=== PATIENT | female | born 1950 | race Caucasian/White ===

== ENCOUNTER → 2016-10-02 | Outpatient (CLI) | payer BC ==
[~2016-10-02] MED LIST: ALBU17AE3; CLR500T; FRSM20T; HYDR-3729 PO; OMEP20CA12; QNPR10T; [UNRECOGNIZED DRUG - CODE]
[2016-10-02 15:19] LABS: ALBUMIN 4.3 G/DL (3.2-4.5); BILIRUBIN,TOTAL 0.7 MG/DL (0.1-1.0); CALCIUM 9.9 MG/DL (8.5-10.1); CREATININE SERUM 1.09 MG/DL (0.60-1.30); POTASSIUM 3.9 MMOL/L (3.6-5.0); TOTAL PROTEIN 7.5 G/DL (6.4-8.2)
== END ==
LOC: LAB 14:05
PROVIDERS: ATTEND Family Medicine
DX: I10 Essential (primary) hypertension (principal)
CPT/HCPCS: 36415; 80053

== ENCOUNTER → 2016-10-08 | Outpatient (CLI) | payer BC ==
[~2016-10-08] MED LIST changes: +CATHETER FLUSH 10 ML SYR IV PRN; +IOHEXOL 350 MG/ML 100 ML (OMNIPAQUE 350) VIAL IV ONE; +NS 100 ML (IVPB) BAG IV ONE
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
--- NOTE | 2016-10-08 17:35 | Diagnostic Imaging Report ---
PROCEDURE: US Carotid Duplex Bilateral. TECHNIQUE: Multiple real-time grayscale images were obtained over the carotid arteries in various projections bilaterally. Additional duplex Doppler and color Doppler images were also obtained. INDICATION: Memory loss. FINDINGS: Grayscale images demonstrate mild atherosclerotic plaque. Color Doppler demonstrates patency of the common, internal and external carotid arteries bilaterally. The vertebral arteries demonstrate antegrade flow on both sides. Peak systolic velocities in the right ICA are 66, 80 and 127 cm/s from proximal to distal. The left ICA velocities are 45, 95, and 96 cm/s from proximal to distal. ICA/CCA ratio is up to 1.4 on the right side and up to 1.1 on the left compatible with underlying stenosis within range of 0-40% bilaterally. IMPRESSION: No evidence of significant stenosis. Dictated by: Dictated on workstation # [id number]
== END ==
LOC: RAD 08:14
PROVIDERS: ATTEND Family Medicine
DX: R41.3 Other amnesia (principal)
CPT/HCPCS: 70470; 93880

== ENCOUNTER → 2017-04-15 | Outpatient (CLI) | payer BC ==
[~2017-04-15] MED LIST changes: -CATHETER FLUSH 10 ML SYR IV PRN; -IOHEXOL 350 MG/ML 100 ML (OMNIPAQUE 350) VIAL IV ONE; -NS 100 ML (IVPB) BAG IV ONE
--- NOTE | 2017-04-15 14:31 | Diagnostic Imaging Report ---
INDICATION: Injury. Pain. COMPARISON: None. FINDINGS: 3 views of the right foot demonstrate no acute fracture or dislocation. There are no focal osseous lesions. There is no soft tissue swelling. Joint spaces are well maintained. No radiopaque foreign bodies are seen. IMPRESSION: No acute fractures or dislocations of the right foot. Dictated by: Dictated on workstation # [id number]
== END ==
LOC: RAD 13:53
PROVIDERS: ATTEND Family Medicine
DX: S90.31XA Contusion of right foot, initial encounter (principal); X58.XXXA Exposure to other specified factors, initial encounter; Y99.8 Other external cause status
CPT/HCPCS: 73630

== ENCOUNTER → 2017-10-19 | Outpatient (CLI) | payer MEDICARE ==
[2017-10-19 13:19] LABS: ALBUMIN 4.2 GM/DL (3.2-4.5); BILIRUBIN,TOTAL 0.9 MG/DL (0.1-1.0); CALCIUM 9.6 MG/DL (8.5-10.1); CREATININE SERUM 1.05 MG/DL (0.60-1.30); POTASSIUM 3.9 MMOL/L (3.6-5.0); TOTAL PROTEIN 7.8 GM/DL (6.4-8.2)
== END ==
LOC: LAB 12:39
PROVIDERS: ATTEND Family Medicine
DX: R60.9 Edema, unspecified (principal)
CPT/HCPCS: 36415; 80053

== ENCOUNTER 2018-09-23 22:08 | Emergency (ER) | payer MEDICARE ==
[~2018-09-23] VITALS: Ht 170.2 cm; Wt 117.9 kg
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
--- OUTSIDE RECORDS SUMMARY | 2018-09-23 22:15 | XMS REPORT | Clinical Summary ---
Author Author [facility] Organization [facility] Address Unknown Phone Unavailable Care Team Providers Care Certified Health Education Specialist Name Role Phone Sergio Pike MD PCP Beverly Sanchez MD Unavailable Source Comments Some departments are not documenting in the electronic medical record. If you do not see the information that you expected, contact Release of Information in the Health Information Management department at [phone] for further assistance in locating additional records.[facility] Allergies No Known Allergies Medications End Date Status Medication Sig Dispensed Refills Start Date Active amitriptyline (ELAVIL) 50 Take 50 mg by 0 mg PO tabletIndications: mouth at HTN (hypertension) bedtime daily. Active furosemide (LASIX) 20 mg Take 20 mg by 0 PO tabletIndications: HTN mouth daily. (hypertension) Active metformin (GLUCOPHAGE) Take 500 mg 0 500 mg PO by mouth tabletIndications: HTN twice daily (hypertension) with meals. Active quinapril(+) (ACCUPRIL) Take 10 mg by 0 10 mg PO mouth daily. tabletIndications: HTN (hypertension) Active lansoprazole DR Take 30 mg by 0 (PREVACID) 30 mg PO mouth daily. capsuleIndications: HTN (hypertension) Active DOCOSAHEXANOIC ACID/EPA Take by 0 (FISH OIL PO)Indications: mouth. HTN (hypertension) Active pravastatin (PRAVACHOL) Take 1 Tab by 30 Cap 3 20 mg PO mouth daily. 1 tabletIndications: HTN (hypertension) Active Phentermine 37.5 mg cap Take by 0 mouth. Active liraglutide(+) (VICTOZA Inject 0.6 mg 0 2-ANSELMO) 0.6 mg/0.1 mL (18 into area(s) mg/3 mL) PnIj as directed daily. Active Problems Problem Noted Date HTN (hypertension) 09/23/2010 Last Assessment & Plan: Blood pressure is stable on current medical management. No change in medications recommended at this time. Hyperlipidemia LDL goal < 70 09/23/2010 Overview: Statin initiated 08/2010 L ast Assessment & Plan: Given Mrs. Montez's diabetes and LDL at 120, I initiated a low dose statin today to try and get her to her goal of <70 mg/dl. I talked to her about myalgias on statins. I told her to call my office if she starts having myalgias and we will stop the drug. I gave her a lipid and LFT requisition for 3 months from now. Obesity 09/23/2010 Last Assessment & Plan: I strongly encouraged Mrs. Montez to start walking for 30-60 minutes 3-5 times a week. I told her that if she could lose 10-15 pounds she could likely get off of a number of her medications. She agreed to try. Diabetes mellitus type 2, noninsulin dependent Ovarian cyst Migraines Murmur Last Assessment & Plan: Physical examination is consistent with mild tricuspid regurgitation. I told her that we don't need to do any further evaluation unless she starts having symptoms to suggest right heart failure. Family History Medical History Relation Name Comments Cancer Brother Diabetes Brother Hypertension Brother Diabetes Maternal Aunt Heart Attack Mother Bleeding Disorders Neg Hx Cancer-Breast Neg Hx Cancer-Colon Neg Hx Cancer-Ovarian Neg Hx Heart Disease Neg Hx VTE Neg Hx Relation Name Status Comments Brother Alive Brother Alive Father Maternal Aunt Mother Sister Alive Sister Alive Social History Date Tobacco Use Types Packs/Day Years Used Quit: 09/24/1995 Former Smoker Alcohol Use Drinks/Week oz/Week Comments No Sex Assigned at Date Recorded Not on file Industry Job Start Date Occupation Not on file Not on file Not on file Travel End Travel History Travel Start No recent travel history available. Last Filed Vital Signs Time Taken Vital Sign Reading 09/01/2012 9:19 AM CDT Blood Pressure 128/78 09/23/2010 9:31 AM CDT Pulse 82 - Temperature - - Respiratory Rate - - Oxygen Saturation - - Inhaled Oxygen - Concentration 09/01/2012 9:19 AM CDT Weight 99.3 kg (219 lb) 09/01/2012 9:19 AM CDT Height 172.7 cm (5' 8") 09/01/2012 9:19 AM CDT Body Mass Index 33.3 Plan of Treatment Health Maintenance Due Date Last Done Comments HEPATITIS C SCREENING 1952 PHYSICAL (COMPREHENSIVE) 1959 EXAM DILATED EYE EXAM 1970 DTAP/TDAP VACCINES (1 - 1970 Tdap) FOOT EXAM 1970 HBA1C 1970 MICROALBUMIN 1970 COLORECTAL CANCER 2002 SCREENING SHINGLES RECOMBINANT 2002 VACCINE (1 of 2) BREAST CANCER SCREENING 11/21/2015 11/20/2014, 07/01/2012, 07/20/2009, Additional history exists OSTEOPOROSIS 2017 SCREENING/MONITORING PNEUMONIA (PCV13/PPSV23) 2017 VACCINES (1 of 2 - PCV13) INFLUENZA VACCINE 12/30/2018 Results Not on filefrom Last 3 Months Insurance Type Payer Benefit Subscriber ID Effective Phone Address Plan / Dates Group PPO BCBS [facility] xxxxxxxxxxxx [id number] [facility] resent BLUE Advance Directives Patient has advance care planning documents on file. For more information, please contact: [facility] [address] [facility] [place] [address]
[2018-09-23] MEDS ORDERED: SULF1TAB35 PO (23:44)
[2018-09-23] MEDS ORDERED: MELO15TA14 PO (23:44)
[2018-09-23] MEDS ORDERED: RX-NAPROXEN (NAPROSYN) 250 MG TAB PPK#4 PO ONE (23:45)
--- NOTE | 2018-09-23 23:45 | ED Upper Extremity ---
General Chief Complaint: Upper Extremity Stated Complaint: MIDDLE FINGER PAIN AND SWELLING IN R HAND Nursing Triage Note: Pt reports getting R ring finger stuck betwee two baskets last week and now c/o pain in the middle finger. Joint is red and swollen . Pt c/o pain with movement. Area is warm to the touch. Nursing Sepsis Screen: No Definite Risk Source: patient History of Present Illness Date Seen by Provider: Sep 23, 2018 Time Seen by Provider: 23:25 Initial Comments PT ARRIVES VIA POV FROM HOME STATES 2 WEEKS AGO, SHE GOT HER RIGHT 4TH FINGER STUCK BETWEEN 2 BASKETS HAS HAD PAIN AND SWELLING TO DIP JOINT AREA SINCE THEN, BUT IS GETTING BETTER AND DOES NOT HURT MUCH AT ALL DID NOT SEEK CARE FOR THAT ISSUE STATES NOW SHE IS HAVING PAIN, REDNESS AND SWELLING TO 3RD MCP JOINT OF RIGHT HAND --IS NOT SURE WHEN THAT STARTED, BUT THINKS YESTERDAY OR TODAY NO NEW INJURY STATES HER DAUGHTER NOTICED IT AND MADE HER COME HERE TONIGHT, BECAUSE THEY ARE LEAVING FOR [place] IN THE MORNING AND "WANTED IT CHECKED SO THEY DIDN'T HAVE TO GO TO AN ER IN [place]" PT DOES NOT RECALL INJURING THAT AREA PT STATES PAIN EXTENDS TO PROXIMAL 3RD FINGER, AND HAS PAIN WITH MOVEMENT OF 3RD FINGER NO PARESTHESIAS OR MOTOR DEFICITS NO HISTORY OF PRIOR PROBLEMS WITH THIS HAND NO OTHER JOINTS PAINFUL OR SWOLLEN NO FEVER HAS NOT TAKEN ANYTHING FOR PAIN AT ANY TIME PT STATES SHE SAW DR. QUARLES ON THURSDAY FOR A COLD AND WAS GIVEN RX FOR Z-PACK WENT BACK TO CLINIC ON THURSDAY AND SAW STITCHER HAND BECAUSE Z-PACK WAS CAUSING HER TO HAVE DIARRHEA. WAS GIVEN RX FOR CEFDINIR AND CODEINE COUGH SYRUP THOSE SYMPTOMS ARE GETTING BETTER HAS NOT SOUGHT CARE AT ANY TIME FOR HAND COMPLAINTS--DID NOT MENTION THEM AT VISITS AT HER DR'S OFFICE THIS WEEK PT IS DIABETIC PCP: DR. QUARLES Allergies and Home Medications Allergies Coded Allergies: YENIFERANo Known Allergies (Verified Allergy, Unknown, 10/15/06) Home Medications Hydrocodone/Acetaminophen 1 Each Tablet, 1-2 EACH PO Q4H PRN for PAIN Prescribed by: NATY ROLDAN on 03/23/16 1301 Meloxicam 15 Mg Tablet, 15 MG PO DAILY Prescribed by: KEVYN QUINTANILLA on 09/23/18 2344 Sulfamethoxazole/Trimethoprim 1 Each Tablet, 1 EACH PO BID Prescribed by: KEVYN QUINTANILLA on 09/23/18 2344 Patient Home Medication List Home Medication List Reviewed: Yes Review of Systems Constitutional: see HPI EENTM: see HPI Respiratory: see HPI Musculoskeletal: see HPI Skin: see HPI Psychiatric/Neurological: No Symptoms Reported Past Oaafbqa-Tlhroz-Imfiey Hx Patient Social History Alcohol Use: Denies Use Recreational Drug Use: No Smoking Status: Former Smoker Type Used: Cigarettes 2nd Hand Smoke Exposure: No (quit in 2006) Recent Foreign Travel: No Contact w/Someone Who Travel: No Recent Infectious Disease Expo: No Recent Hopitalizations: No Physical Abuse: No Sexual Abuse: No Mistreated: No Seasonal Allergies Seasonal Allergies: Yes Past Medical History Surgeries: Yes Appendectomy, Gallbladder, Oophorectomy, Tubal Ligation Respiratory: Yes Asthma Cardiac: Yes Hypertension Neurological: Yes Headaches /Migraines Reproductive Disorders: Yes Female 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 oz. 117.102137mg; BMI Method:Stated General Appearance: WD/WN, no apparent distress Shoulder: normal inspection, non-tender, no evidence of injury, normal ROM Elbow/Forearm: normal inspection, non-tender, no evidence of injury, normal ROM Wrist: Yes normal inspection, Yes non-tender, Yes no evidence of injury, Yes normal ROM Hand: Right (MILD TENDERNESS, SWELLING AND ERYTHEMA TO RIGHT DIP JOINT AREA. MOTOR/SENSORY/VASCULAR INTACT. MODERATE TENDERNESS, SWELLING, ERYTHEMA AND WARMTH TO RIGHT 3RD MCP JOINT, WITH MILDER TENDERNESS, SWELLING AND ERYTHEMA TO PROXIMAL 3RD FINGER. MOTOR/SENSORY/VASCULAR INTACT), bone tenderness, limited ROM, soft tissue tenderness, swelling Neurologic/Psychiatric: cannoneer II-XII nml as tested, no motor/sensory deficits, alert, normal mood/affect, oriented x 3 Skin: normal color, warm/dry, other ( ABOVE. NO OPEN WOUNDS) Progress/Results/Core Measures Results/Orders My Orders Orders - KEVYN QUINTANILLA DO Hand, Right, 3 Views (09/23/18 ) Rx-Naproxen (Rx-Naprosyn) (09/23/18 23:45) Rx-Naproxen (Rx-Naprosyn) (09/23/18 23:45) Vital Signs/I&O Blood Pressure Mean: 92 Diagnostic Imaging Comments XRAYS RIGHT HAND--SMALL AVULSION TO DIP JOINT AREA OF 4TH FINGER, NO OTHER ACUTE PROCESS, PENDING RADIOLOGIST REVIEW Reviewed: Reviewed by Me Departure Impression Primary Impression: AVULSION FRACTURE RIGHT 4TH DIP JOINT Additional Impression: CELLULITIS RIGHT HAND AT MCP JOINT AREA Disposition: 01 HOME, SELF-CARE Condition: Stable Departure-Patient Inst. Referrals: ADILENE QUARLES MD (PCP/Family) Primary Care Physician Patient Instructions: Cellulitis (Skin Infection), Adult (DC), Finger Fracture (DC) Add. Discharge Instructions: ICE TO SORE AREAS AT 20 MINUTE INTERVALS ELEVATE HAND MUCH POSSIBLE CONTINUE CEFDINIR PRESCRIBED FOLLOW UP WITH DR IN 2-3 DAYS IF NO BETTER RETURN TO ER IF WORSE All discharge instructions reviewed with patient and/or family. Voiced understanding. Scripts Meloxicam (Mobic) 15 Mg Tablet 15 MG PO DAILY, #10 TAB Prov: KEVYN QUINTANILLA DO 09/23/18 Sulfamethoxazole/Trimethoprim (Bactrim Ds Tablet) 1 Each Tablet 1 EACH PO BID, #20 TAB Prov: KEVYN QUINTANILLA DO 09/23/18 KEVYN QUINTANILLA DO Sep 23, 2018 23:45
[2018-09-23] MEDS: RX-NAPROXEN (NAPROSYN) 250 MG TAB PPK#4 PO STA (23:49)
[2018-09-23 23:53] VITALS: BP 139/64
--- NOTE | 2018-09-24 07:27 | Diagnostic Imaging Report ---
Clinical indication: Caught hand between 2 baskets last week. Patient still complains of pain and soreness in third and fourth digits. Exam: X-ray of the right hand, 3 views. Comparison: None. Findings: There is a dorsally displaced intra-articular fracture of the dorsal base of the fourth distal phalanx. There is adjacent soft tissue swelling. There appears be chronic calcifications and degenerative spurring involving the second DIP joint. There is no other fracture or dislocation seen on this exam. There are small spurs scattered throughout the PIP and IP joints of the left hand. There is mild spurring of the first MCP joint and third MCP joint region. There is mild spurring of the first CMC joint. Impression: 1: There is a dorsally displaced intra-articular fracture of the dorsal base of the fourth distal phalanx. 2: There is no other definite fracture or dislocation seen. 3: Degenerative disease of the right hand. Dictated by: Dictated on workstation # [id number]
== END 2018-09-23 23:51 | disposition home or self-care (01) ==
LOC: EDUNIT# 22:08 → ER 22:09
DX: S62.634A Displaced fracture of distal phalanx of right ring finger, initial encounter for closed fracture (principal); L03.011 Cellulitis of right finger; J45.909 Unspecified asthma, uncomplicated; I10 Essential (primary) hypertension; G43.909 Migraine, unspecified, not intractable, without status migrainosus; E11.9 Type 2 diabetes mellitus without complications; Z87.448 Personal history of other diseases of urinary system; Z87.891 Personal history of nicotine dependence; Z90.49 Acquired absence of other specified parts of digestive tract; Z98.890 Other specified postprocedural states; Z98.51 Tubal ligation status; W23.1XXA Caught, crushed, jammed, or pinched between stationary objects, initial encounter
CPT/HCPCS: 73130

== ENCOUNTER → 2019-02-01 | Outpatient (CLI) | payer MEDICARE ==
[~2019-02-01] MED LIST changes: +MELO15TA14 PO; +SULF1TAB35 PO
[2019-02-01 10:16] LABS: BASOPHILS % (AUTO) 0 % (0-10); EOSINOPHILS # (AUTO) 0.1 10^3/uL (0.0-0.3); EOSINOPHILS % (AUTO) 3 % (0-10); HEMATOCRIT 33 % (35-52); HEMOGLOBIN 9.8 G/DL (11.5-16.0); LYMPHOCYTES # (AUTO) 1.3 X 10^3 (1.0-4.0); LYMPHOCYTES % (AUTO) 30 % (12-44); MEAN CORPUSCULAR HEMOGLOBIN 24 PG (25-34); MEAN CORPUSCULAR HGB CONC 30 G/DL (32-36); MEAN CORPUSCULAR VOLUME 79 FL (80-99); MEAN PLATELET VOLUME 10.3 FL (7.4-10.4); MONOCYTES # (AUTO) 0.4 X 10^3 (0.0-1.0); MONOCYTES % (AUTO) 8 % (0-12); NEUTROPHILS # (AUTO) 2.6 X 10^3 (1.8-7.8); NEUTROPHILS % (AUTO) 59 % (42-75); PLATELET COUNT 250 10^3/uL (130-400); RED CELL DISTRIBUTION WIDTH 16.8 % (10.0-14.5); WHITE BLOOD COUNT 4.5 10^3/uL (4.3-11.0)
[2019-02-01 10:34] LABS: ALBUMIN 3.8 GM/DL (3.2-4.5); BILIRUBIN,TOTAL 0.7 MG/DL (0.1-1.0); CREATININE SERUM 1.09 MG/DL (0.60-1.30); POTASSIUM 3.9 MMOL/L (3.6-5.0); TOTAL PROTEIN 6.7 GM/DL (6.4-8.2)
== END ==
LOC: LAB 10:00
PROVIDERS: ATTEND Family Medicine
DX: I10 Essential (primary) hypertension (principal)
CPT/HCPCS: 36415; 80053; 80061; 85025

== ENCOUNTER → 2019-02-08 | Outpatient (CLI) | payer MEDICARE | LOC: LAB 11:45 | PROVIDERS: ATTEND Family Medicine | DX: D64.9 Anemia, unspecified (principal) | CPT/HCPCS: 36415; 82728; 83540 ==

== ENCOUNTER 2020-04-12 19:33 | Emergency (ER) | payer MEDICARE ==
[~2020-04-12] VITALS: Ht 170 cm; Wt 117.9 kg
[2020-04-12] MEDS ORDERED: ASPIRIN 81 MG CHEW (CHILDREN'S ASA) PO ONE (19:45)
--- NOTE | 2020-04-12 19:59 | ED Chest Pain ---
General Stated Complaint: CHEST PAIN RADIATING UP JAW History of Present Illness Date Seen by Provider: Apr 12, 2020 Time Seen by Provider: 19:38 Initial Comments 69-year-old female presents for right sided chest pain that radiating to her jaw. She had a total hysterectomy on 04/10/2020 and was discharged to home yesterday. She was given Lovenox at . patient denies any nausea or vomiting. Timing/Duration: 1-3 hours Severity/Quality: moderate Radiation: no radiation, shoulders (right) Activities at Onset: none Prior CP/Workup: no prior chest pain ASA po UAT TESTER: No NTG SL UAT TESTER: No Associated Symptoms: denies symptoms Allergies and Home Medications Allergies Coded Allergies: NKANo Known Allergies (Verified Allergy, Unknown, 10/15/06) Home Medications Hydrocodone/Acetaminophen 1 Each Tablet, 1-2 EACH PO Q4H PRN for PAIN Prescribed by: NATY ROLDAN on 03/23/16 1301 Meloxicam 15 Mg Tablet, 15 MG PO DAILY Prescribed by: KEVYN QUINTANILLA on 09/23/18 2344 Sulfamethoxazole/Trimethoprim 1 Each Tablet, 1 EACH PO BID Prescribed by: KEVYN QUINTANILLA on 09/23/18 2344 Patient Home Medication List Home Medication List Reviewed: Yes Review of Systems Review of Systems Constitutional: no symptoms reported, see HPI Cardiovascular: See HPI, Chest Pain Gastrointestinal: No Symptoms Reported, See HPI; Denies Constipated, Denies Diarrhea, Denies Nausea, Denies Vomiting All Other Systems Reviewed Negative Unless Noted: Yes Past Brhwluq-Mabgbo-Olqbha Hx Past Med/Social Hx: Reviewed Nursing Past Med/Soc Hx Patient Social History Type Used: Cigarettes 2nd Hand Smoke Exposure: No (quit in 2006) Recent Foreign Travel: No Contact w/Someone Who Travel: No Recent Hopitalizations: No Seasonal Allergies Seasonal Allergies: Yes Past Medical History Surgeries: Yes Appendectomy, Gallbladder, Oophorectomy, Tubal Ligation Respiratory: Yes Asthma Cardiac: Yes Hypertension Neurological: Yes Headaches /Migraines Reproductive Disorders: Yes Female 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 oz. 117.817245zt; BMI Method:Stated General Appearance: No Apparent Distress, WD/WN HEENT: PERRL/EOMI, TMs Normal, Normal ENT Inspection, Pharynx Normal Neck: Full Range of Motion, Normal Inspection, Non Tender Respiratory: Lungs Clear, Normal Breath Sounds Cardiovascular: Regular Rate, Rhythm, No Edema, No Murmur, Normal Peripheral Pulses Gastrointestinal: Normal Bowel Sounds, Non Tender, Soft Neurologic/Psychiatric: Alert, Oriented x3, No Motor/Sensory Deficits, Normal Mood/Affect Skin: Normal Color, Warm/Dry Progress/Results/Core Measures Results/Orders Lab Results Laboratory Tests Test 04/12/20 19:55 Range/Units White Blood Count 7.9 4.3-11.0 10^3/uL Red Blood Count 4.16 3.80-5.11 10^6/uL Hemoglobin 11.5 11.5-16.0 g/dL Hematocrit 37 35-52 % Mean Corpuscular Volume 88 80-99 fL Mean Corpuscular Hemoglobin 28 25-34 pg Mean Corpuscular Hemoglobin Concent 31 L 32-36 g/dL Red Cell Distribution Width 13.8 10.0-14.5 % Platelet Count 187 130-400 10^3/uL Mean Platelet Volume 11.2 9.0-12.2 fL Immature Granulocyte % (Auto) 0 % Neutrophils (%) (Auto) 60 42-75 % Lymphocytes (%) (Auto) 26 12-44 % Monocytes (%) (Auto) 9 0-12 % Eosinophils (%) (Auto) 4 0-10 % Basophils (%) (Auto) 0 0-10 % Neutrophils # (Auto) 4.7 1.8-7.8 10^3/uL Lymphocytes # (Auto) 2.1 1.0-4.0 10^3/uL Monocytes # (Auto) 0.7 0.0-1.0 10^3/uL Eosinophils # (Auto) 0.3 0.0-0.3 10^3/uL Basophils # (Auto) 0.0 0.0-0.1 10^3/uL Immature Granulocyte # (Auto) 0.0 0.0-0.1 10^3/uL Prothrombin Time 13.1 12.2-14.7 SEC INR Comment 1.0 0.8-1.4 Activated Partial Thromboplast Time 30 24-35 SEC D-Dimer 0.94 H 0.00-0.49 UG/ML Sodium Level 139 135-145 MMOL/L Potassium Level 3.9 3.6-5.0 MMOL/L Chloride Level 101 98-107 MMOL/L Carbon Dioxide Level 23 21-32 MMOL/L Anion Gap 15 H 5-14 MMOL/L Blood Urea Nitrogen 13 7-18 MG/DL Creatinine 1.05 0.60-1.30 MG/DL Estimat Glomerular Filtration Rate 52 BUN/Creatinine Ratio 12 Glucose Level 110 H 70-105 MG/DL Calcium Level 8.6 8.5-10.1 MG/DL Corrected Calcium 8.8 8.5-10.1 MG/DL Magnesium Level 1.9 1.6-2.4 MG/DL Total Bilirubin 0.7 0.1-1.0 MG/DL Aspartate Amino Transf (AST/SGOT) 20 5-34 U/L Alanine Aminotransferase (ALT/SGPT) 12 0-55 U/L Alkaline Phosphatase 128 40-136 U/L Myoglobin 46.0 10.0-92.0 NG/ML Troponin I < 0.028 <0.028 NG/ML Total Protein 7.3 6.4-8.2 GM/DL Albumin 3.8 3.2-4.5 GM/DL My Orders Orders - TINY RYAN EDUCATION COORDINATOR Cbc With Automated Diff (04/12/20:43) Magnesium (04/12/20 19:43) Chest 1 View, Ap/Pa Only (04/12/20:43) Ekg Tracing (04/12/20:43) Comprehensive Metabolic Panel (04/12/20:43) Myoglobin Serum (04/12/20:43) Protime With Inr (04/12/20:43) Partial Thromboplastin Time (04/12/20:43) O2 (04/12/20:43) Monitor-Rhythm Ecg Trace Only (04/12/20:43) Ed Iv/Invasive Line Start (04/12/20:43) Aspirin Chewable Tablet (Baby Aspirin Ch (04/12/20 19:45) Fibrin Degradation Products (04/12/20 19:55) Troponin I (04/12/20 19:55) Ketorolac Injection (Toradol Injection) (04/12/20 20:09) Medications Given in ED Current Medications Medications Dose Ordered Sig/Ulisses Route Start Time Stop Time Status Last Admin Dose Admin Aspirin 324 mg ONCE ONCE PO 04/12/20 19:45 04/12/20 19:46 DC 04/12/20 19:59 324 MG Vital Signs/I&O 04/12/20 04/12/20 04/12/20 04/12/20 19:35 19:35 19:35 20:58 Temp 36.5 Pulse 84 76 Resp 20 18 B/P (MAP) 156/78 (104) 126/52 Pulse Ox 98 98 98 O2 Delivery Nasal Cannula Nasal Cannula Room Air O2 Flow Rate 2.00 2.0 2.00 Progress Progress Note : Time: 19:38 Progress Note patient seen and evaluated, will obtain labs, and EKG and chest x-ray. Toradol 30 mg IV for pain. Aspirin 324 mg orally. 2014 the patient reports improvement in her pain. Discussed and CO2 for her laparoscopic surgery can present with symptoms similar to what she is experiencing. Will await for labs. patient's daughter updated on her status. 2029 labs all within normal limits. Patient reports resolution of her symptoms. Discharge instructions and return precautions reviewed with the patient. All questions answered. Initial ECG Impression Date: Apr 12, 2020 Initial ECG Impression Time: 19:45 Initial ECG Rhythm: Normal Sinus Initial ECG Intervals: Normal Initial ECG Intervals MO 205, QRS D1 15, QTC 4:15, QTC 458. [place] P 38, QRS 9, T 27. Initial ECG Impression: Normal Initial ECG Comparisson: Unchanged Diagnostic Imaging Diagonstic Imaging: Xray Plain Films/CT/US/NM/MRI: chest Comments NAME: DONY DINERO [facility] REC#: [id number] PT STATUS: REG ER : 1950 PHYSICIAN: TINY RYAN ADMIT DATE: 04/12/20/ER Draft Date of Exam:04/12/20 CHEST 1 VIEW, AP/PA ONLY INDICATION: Chest pain Upright chest shows heart size to be upper normal. The vascularity is normal. The lungs are clear. There is no effusion or pneumothorax. There is no bony abnormality. IMPRESSION: No acute abnormality is seen with no change from 10/15/2006. Dictated on workstation # [id number] Dict: 04/12/202004 Trans: 04/12/202011 CVB [id number] Interpreted by: THANIA ARGUELLO MD Electronically signed by: Reviewed: Reviewed by Me Departure Impression Primary Impression: Chest wall pain Additional Impression: Post-op pain Disposition: HOME, SELF-CARE Condition: Improved Departure-Patient Inst. Decision time for Depature: 20:30 Referrals: ADILENE QUARLES MD (PCP) Primary Care Physician Patient Instructions: Pleuritic Chest Pain (DC) Add. Discharge Instructions: Ambulate 5-10 min, every 2 hours. Take Aspirin 81mg, once daily. Use pain medication, as ordered by your surgeon. Use warm towels to your chest, for pain. Call your surgeon, if symptoms are not improving or worsen. Return to Emergency Dept for new, urgent health care needs. TINY RYAN Apr 12, 2020 19:59
[2020-04-12 20:05] LABS: BASOPHILS % (AUTO) 0 % (0-10); EOSINOPHILS # (AUTO) 0.3 10^3/uL (0.0-0.3); EOSINOPHILS % (AUTO) 4 % (0-10); HEMATOCRIT 37 % (35-52); HEMOGLOBIN 11.5 g/dL (11.5-16.0); LYMPHOCYTES # (AUTO) 2.1 10^3/uL (1.0-4.0); LYMPHOCYTES % (AUTO) 26 % (12-44); MEAN CORPUSCULAR HEMOGLOBIN 28 pg (25-34); MEAN CORPUSCULAR HGB CONC 31 g/dL (32-36); MEAN CORPUSCULAR VOLUME 88 fL (80-99); MEAN PLATELET VOLUME 11.2 fL (9.0-12.2); MONOCYTES # (AUTO) 0.7 10^3/uL (0.0-1.0); MONOCYTES % (AUTO) 9 % (0-12); NEUTROPHILS # (AUTO) 4.7 10^3/uL (1.8-7.8); NEUTROPHILS % (AUTO) 60 % (42-75); PLATELET COUNT 187 10^3/uL (130-400); WHITE BLOOD COUNT 7.9 10^3/uL (4.3-11.0)
[2020-04-12] MEDS ORDERED: KETOROLAC 30 MG/ML VIAL IVP STA (20:09)
--- NOTE | 2020-04-12 20:12 | Diagnostic Imaging Report ---
INDICATION: Chest pain Upright chest shows heart size to be upper normal. The vascularity is normal. The lungs are clear. There is no effusion or pneumothorax. There is no bony abnormality. IMPRESSION: No acute abnormality is seen with no change from 10/15/2006. Dictated by: Dictated on workstation # [id number]
[2020-04-12 20:19] LABS: FIBRIN DEGRADATION PRODUCTS 0.94 UG/ML (0.00-0.49); PROTHROMBIN TIME PATIENT 13.1 SEC (12.2-14.7)
[2020-04-12 20:22] LABS: ALANINE AMINOTRANSFERASE 12 U/L (0-55); ALBUMIN 3.8 GM/DL (3.2-4.5); ALKALINE PHOSPHATASE 128 U/L (40-136); BILIRUBIN,TOTAL 0.7 MG/DL (0.1-1.0); BUN/CREATININE RATIO 12; CALCIUM 8.6 MG/DL (8.5-10.1); CARBON DIOXIDE 23 MMOL/L (21-32); CHLORIDE 101 MMOL/L (98-107); CREATININE SERUM 1.05 MG/DL (0.60-1.30); GFR ESTIMATED 52; GLUCOSE 110 MG/DL (70-105); MAGNESIUM 1.9 MG/DL (1.6-2.4); POTASSIUM 3.9 MMOL/L (3.6-5.0); SODIUM 139 MMOL/L (135-145); TOTAL PROTEIN 7.3 GM/DL (6.4-8.2)
[2020-04-12 20:58] VITALS: BP 126/52
== END 2020-04-12 21:00 | disposition home or self-care (01) ==
LOC: EDUNIT# 19:33 → ER 19:34
DX: R07.89 Other chest pain (principal); G89.18 Other acute postprocedural pain
CPT/HCPCS: 36415; 71045; 80053; 83735; 83874; 84484; 85025; 85379; 85610; 85730; 93005; 93041

== ENCOUNTER 2020-06-07 07:05 | Emergency (ER) | payer MEDICARE ==
[~2020-06-07] VITALS: Ht 167.7 cm; Wt 122.5 kg
[2020-06-07 07:50] LABS: BASOPHILS % (AUTO) 0 % (0-10); EOSINOPHILS # (AUTO) 0.2 10^3/uL (0.0-0.3); EOSINOPHILS % (AUTO) 4 % (0-10); HEMATOCRIT 39 % (35-52); HEMOGLOBIN 12.1 g/dL (11.5-16.0); LYMPHOCYTES # (AUTO) 0.9 10^3/uL (1.0-4.0); LYMPHOCYTES % (AUTO) 23 % (12-44); MEAN CORPUSCULAR HEMOGLOBIN 29 pg (25-34); MEAN CORPUSCULAR HGB CONC 31 g/dL (32-36); MEAN CORPUSCULAR VOLUME 92 fL (80-99); MEAN PLATELET VOLUME 11.1 fL (9.0-12.2); MONOCYTES # (AUTO) 0.3 10^3/uL (0.0-1.0); MONOCYTES % (AUTO) 8 % (0-12); NEUTROPHILS # (AUTO) 2.6 10^3/uL (1.8-7.8); NEUTROPHILS % (AUTO) 64 % (42-75); PLATELET COUNT 189 10^3/uL (130-400)
[2020-06-07 07:53] LABS: ALBUMIN 3.6 GM/DL (3.2-4.5)
[2020-06-07 07:54] LABS: CALCIUM 8.8 MG/DL (8.5-10.1)
[2020-06-07 07:56] LABS: TOTAL PROTEIN 6.6 GM/DL (6.4-8.2)
[2020-06-07 07:57] LABS: BILIRUBIN,TOTAL 0.8 MG/DL (0.1-1.0)
[2020-06-07 07:59] LABS: CREATININE SERUM 0.97 MG/DL (0.60-1.30)
[2020-06-07 08:02] LABS: MAGNESIUM 1.9 MG/DL (1.6-2.4)
--- NOTE | 2020-06-07 08:05 | ED Cardiac General ---
History of Present Illness General Chief Complaint: Cardiac/General Problems Stated Complaint: IRR HEART RATE/ ELEV BP/ HEADACHE Nursing Triage Note: PT AMB TO RM 5 WITH COMPLAINT OF CASTELLANO, HTN, AND CHEST DISCOMFORT. STATES LAST NIGHT SHE FELT LIKE HER HEART WAS QUIVERING. WOKE UP IN THE MIDDLE OF THE NIGHT WITH SAME SYMPTOMS AND NOTICED THAT HER BLOOD PRESSURE WAS ELEVATED AND SHE HAD A HEADACHE. HAS BEEN DRIVING TO DAILY FOR RADIATION. Source: patient Exam Limitations: no limitations (MALA LENNON STUDENT) History of Present Illness Date Seen by Provider: Jun 07, 2020 Time Seen by Provider: 07:30 Initial Comments 70 y/o F present to the Emergency Department for a cardiac complaint. Pt states her heart started quivering last night around 9pm. The pt felt like her chest was heavy and had a CASTELLANO. Pt went to bed then woke up at 5am with a BP of 187 over something. Pt denies chest pain, abdominal pain, numbness, or swelling. Pt denies pain radiating anywhere. Nothing made it better or worse. Pt admitted she hasn't taken Furosemide since Thursday because she was traveling back and forth to for chemo. She had no places to pee along the drive and forgot to take the pill when she got home. Pt denies recent changes in diet, increased salt intake, caffeine, energy drinks, or stimulant use. Pt had a rhythm monitor a couple of years ago but denies getting cathed. Pt denies previous occurrences. PMHx: migraines, endometrial cancer, DM2, congenital heart murmur PSHx: tubal ligation, gallbladder removal, appendectomy, fallopian tube and ovary removal unilateral, hysterectomy FamHx: DM (brother), congenital heart murmur (brother), ALS (mother) meds: furosemide, metformin, lisinopril, Accupril, iron, amitriptyline allergy to meds: none, sensitivity to erythromycin (stomach upset) SocHx: no smoking, no alcohol, no recreational drugs (MALA LENNON MED STUDENT) Allergies and Home Medications Allergies Coded Allergies: NKANo Known Allergies (Verified Allergy, Unknown, 10/15/06) Home Medications Hydrocodone/Acetaminophen 1 Each Tablet, 1-2 EACH PO Q4H PRN for PAIN Prescribed by: NATY ROLDAN on 03/23/16 1301 Meloxicam 15 Mg Tablet, 15 MG PO DAILY Prescribed by: KEVYN QUNITANILLA on 09/23/18 2344 Sulfamethoxazole/Trimethoprim 1 Each Tablet, 1 EACH PO BID Prescribed by: KEVYN QUINTANILLA on 09/23/18 2344 Patient Home Medication List Home Medication List Reviewed: Yes (KORINA MOLINA MD) Review of Systems Review of Systems EENTM: No Blurred Vision, No Double Vision Respiratory: Shortness of Air Cardiovascular: Denies Chest Pain; Irregular Heart Rate, Palpitations, Other (heaviness in chest) Gastrointestinal: Denies Abdominal Pain Psychiatric/Neurological: Headache; Denies Paresthesia (MALA LENNON) Constitutional: no symptoms reported Musculoskeletal: no symptoms reported Skin: no symptoms reported Hematologic/Lymphatic: No Symptoms Reported (KORINA MOLINA MD) Past Uswfdvq-Pbfrko-Kgdzzb Hx Past Med/Social Hx: Reviewed Nursing Past Med/Soc Hx (KORINA MOLINA MD) Patient Social History Alcohol Use: Denies Use Recreational Drug Use: No Smoking Status: Former Smoker Type Used: Cigarettes 2nd Hand Smoke Exposure: No (quit in 2006) Recent Foreign Travel: No Contact w/Someone Who Travel: No Recent Infectious Disease Expo: No Recent Hopitalizations: No (MALA LENNON) Immunizations Up To Date Tetanus Booster (TDap): Unknown PED Vaccines UTD: Yes (MALA LENNON) Seasonal Allergies Seasonal Allergies: Yes (MALA LENNON) Past Medical History Surgeries: Yes Appendectomy, Gallbladder, Hysterectomy, Oophorectomy, Tubal Ligation Respiratory: Yes Asthma Cardiac: Yes Heart Murmur (congenital), Hypertension Neurological: Yes Headaches /Migraines Reproductive Disorders: Yes 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, Tubal Ligation, Menopausal Genitourinary: No Gastrointestinal: No Musculoskeletal: Yes Arthritis Endocrine: Yes Diabetes, Non-Insulin dep HEENT: No Cancer: No Psychosocial: No Integumentary: No Blood Disorders: No Adverse Reaction/Blood Tranf: No (MALA LENNON) Cancer: Yes Uterine (Endometrial) (KORINA MOLINA MD) Family Medical History Diabetes ((brother)), Other Conditions/Hx (ALS (mom), congenital heart murmur (brother)) (MALA LENNON MED STUDENT) Physical Exam Vital Signs Vital Signs - First Documented 06/07/20 07:12 Temp 36.2 Pulse 80 Resp 20 B/P (MAP) 184/95 (124) Pulse Ox 97 O2 Delivery Room Air (KORINA MOLINA MD) Vital Signs Capillary Refill : Less Than 3 Seconds (MALA LENNON MED STUDENT) Height, Weight, BMI Height: 5'7.00" Weight: 260lbs. oz. 117.127067gi; 43.00 BMI Method:Stated General Appearance: No Apparent Distress Respiratory: Lungs Clear, Normal Breath Sounds, No Accessory Muscle Use, No Respiratory Distress Cardiovascular: Irregularly Irregular, Other (murmur) Neurologic/Psychiatric: Alert, Normal Mood/Affect (MALA LENNON MED STUDENT) Progress/Results/Core Measures Results/Orders Lab Results Laboratory Tests Test 06/07/20 07:26 06/07/20 09:31 Range/Units White Blood Count 4.0 L 4.3-11.0 10^3/uL Red Blood Count 4.19 3.80-5.11 10^6/uL Hemoglobin 12.1 11.5-16.0 g/dL Hematocrit 39 35-52 % Mean Corpuscular Volume 92 80-99 fL Mean Corpuscular Hemoglobin 29 25-34 pg Mean Corpuscular Hemoglobin Concent 31 L 32-36 g/dL Red Cell Distribution Width 14.9 H 10.0-14.5 % Platelet Count 189 130-400 10^3/uL Mean Platelet Volume 11.1 9.0-12.2 fL Immature Granulocyte % (Auto) 0 % Neutrophils (%) (Auto) 64 42-75 % Lymphocytes (%) (Auto) 23 12-44 % Monocytes (%) (Auto) 8 0-12 % Eosinophils (%) (Auto) 4 0-10 % Basophils (%) (Auto) 0 0-10 % Neutrophils # (Auto) 2.6 1.8-7.8 10^3/uL Lymphocytes # (Auto) 0.9 L 1.0-4.0 10^3/uL Monocytes # (Auto) 0.3 0.0-1.0 10^3/uL Eosinophils # (Auto) 0.2 0.0-0.3 10^3/uL Basophils # (Auto) 0.0 0.0-0.1 10^3/uL Immature Granulocyte # (Auto) 0.0 0.0-0.1 10^3/uL Prothrombin Time 13.5 12.2-14.7 SEC INR Comment 1.0 0.8-1.4 Activated Partial Thromboplast Time 33 24-35 SEC Sodium Level 139 135-145 MMOL/L Potassium Level 4.0 3.6-5.0 MMOL/L Chloride Level 104 98-107 MMOL/L Carbon Dioxide Level 21 21-32 MMOL/L Anion Gap 14 5-14 MMOL/L Blood Urea Nitrogen 17 7-18 MG/DL Creatinine 0.97 0.60-1.30 MG/DL Estimat Glomerular Filtration Rate 57 BUN/Creatinine Ratio 18 Glucose Level 159 H 70-105 MG/DL Calcium Level 8.8 8.5-10.1 MG/DL Corrected Calcium 9.1 8.5-10.1 MG/DL Magnesium Level 1.9 1.6-2.4 MG/DL Total Bilirubin 0.8 0.1-1.0 MG/DL Aspartate Amino Transf (AST/SGOT) 16 5-34 U/L Alanine Aminotransferase (ALT/SGPT) 16 0-55 U/L Alkaline Phosphatase 125 40-136 U/L Myoglobin 31.4 10.0-92.0 NG/ML Troponin I < 0.028 < 0.028 <0.028 NG/ML B-Type Natriuretic Peptide 23.3 <100.0 PG/ML Total Protein 6.6 6.4-8.2 GM/DL Albumin 3.6 3.2-4.5 GM/DL TSH [place] Testing 1.78 0.35-4.94 UIU/ML (KORINA MOLINA MD) My Orders Orders - KORINA MOLINA MD Cbc With Automated Diff (06/07/20 07:44) Magnesium (06/07/20 07:44) Chest 1 View, Ap/Pa Only (06/07/20 07:44) Ekg Tracing (06/07/20 07:44) Comprehensive Metabolic Panel (06/07/20 07:44) Myoglobin Serum (06/07/20 07:44) Protime With Inr (1/7/21 07:44) Partial Thromboplastin Time (06/07/20 07:44) O2 (06/07/20 07:44) Monitor-Rhythm Ecg Trace Only (06/07/20 07:44) Ed Iv/Invasive Line Start (06/07/20 07:44) Troponin I (06/07/20 07:44) BNP (06/07/20 07:44) Thyroid Analyzer (06/07/20 07:44) Troponin I (06/07/20 09:30) (KORINA MOLINA MD) Vital Signs/I&O 06/07/20 06/07/20 07:12 10:53 Temp 36.2 Pulse 80 73 Resp 20 18 B/P (MAP) 184/95 (124) 152/76 Pulse Ox 97 98 O2 Delivery Room Air Room Air (KORINA MOLINA MD) Blood Pressure Mean: 124 Progress Progress Note : Time: 07:30 Progress Note irregular heart rate - EKG was taken and revealed no irregularities. Cardiac blood panel and BNP were obtained. Results pending. CXR was ordered. headache elevated blood pressure -Electrolytes, and thyroid labs was obtained. (MALA LENNON MED STUDENT) Initial ECG Impression Date: Jun 07, 2020 Initial ECG Impression Time: 07:12 Initial ECG Rate: 75 Initial ECG Rhythm: Normal Sinus Initial ECG Intervals: Normal Comment Normal sinus rhythm with no ST elevation or depression. No abnormal intervals or axis deviation. (KORINA MOLINA MD) Diagnostic Imaging Diagonstic Imaging: Xray Plain Films/CT/US/NM/MRI: chest Comments NAME: DONY DINERO [facility] REC#: [id number] PT STATUS: DEP ER : 1950 PHYSICIAN: KORINA MOLINA MD ADMIT DATE: 06/07/20/ER Signed Date of Exam:06/07/20 CHEST 1 VIEW, AP/PA ONLY INDICATION: Chest pain. TECHNIQUE: Single view chest 8:18 AM. CORRELATION STUDY: 04/12/2020 FINDINGS: Heart size enlarged but stable. Vasculature within normal limits. Calcification aortic arch. The lungs are clear with no consolidating infiltrate. There is no significant effusion or pneumothorax. IMPRESSION: 1. Stable appearance of chest demonstrate no acute abnormality. Dictated by: Dictated on workstation # [id number] Dict: 06/07/20819 Trans: 06/07/20 1605 [facility] [id number] Interpreted by: TRAM STEEN DO Electronically signed by: TRAM STEEN DO 06/07/20 1605 Reviewed: Reviewed by Me (KORINA MOLINA MD) Departure Impression Primary Impression: Palpitations Additional Impressions: Hypertension Qualified Codes: I10 - Essential (primary) hypertension Chest pressure Disposition: HOME, SELF-CARE Condition: Improved Departure-Patient Inst. Decision time for Depature: 10:25 (KORINA MOLINA MD) Referrals: NO FOX (PCP/Family) Primary Care Physician Patient Instructions: Palpitations Add. Discharge Instructions: Continue your current medications as previously prescribed. Contact Dr. Jimenez's office today to arrange follow-up. Return to the emergency room if you are having worsening symptoms or recurrent episodes of palpitations, chest pressure, shortness of breath, etc. All discharge instructions reviewed with patient and/or family. Voiced understanding. Medical student attestation and attending note: This patient was seen and examined by me personally along with Mala Lennon, MS 3. I have reviewed her documentation including history, physical, and assessments. I agree with her documentation except where otherwise corrected or noted. This 70-year-old woman presents to the emergency room with complaints of headache, hypertension, palpitations, and chest pressure. This started around 05: 00 and dissipated prior to arrival. She had no more chest pain after arrival. Work-up was unremarkable. Blood pressure continued to improve throughout the course of her ER stay without any particular treatment. Repeat troponin obtained 4 hours after onset of symptoms was unremarkable. At this time I do not see a need to restart furosemide before patient discusses further with her social media assistant and primary care provider. See discharge instructions. Exam: General: Alert, oriented, obese, no acute distress HEENT: Normocephalic and atraumatic Heart: Regular rate and rhythm without murmur Lungs: Clear to auscultation bilaterally with normal effort Abdomen: Soft, nontender, nondistended Extremities: Normal to inspection, nontender calves, no significant edema Neuropsych: Alert, oriented, no obvious focal deficits Skin: Warm and dry (KORINA MOLINA MD) Copy Copies To 1: MARCIA JIMENEZ MD Copies To 2: KAMILAH BROWN ELIZABETH X MED STUDENT Jun 07, 2020 08:05 KORINA MOLINA MD Jun 07, 2020 10:27
[2020-06-07 08:17] LABS: PROTHROMBIN TIME PATIENT 13.5 SEC (12.2-14.7)
[2020-06-07 08:22] LABS: TSH (THYROID ANALYZER) 1.78 UIU/ML (0.35-4.94)
--- NOTE | 2020-06-07 08:30 | Diagnostic Imaging Report ---
INDICATION: Chest pain. TECHNIQUE: Single view chest 8:18 AM. CORRELATION STUDY: 04/12/2020 FINDINGS: Heart size enlarged but stable. Vasculature within normal limits. Calcification aortic arch. The lungs are clear with no consolidating infiltrate. There is no significant effusion or pneumothorax. IMPRESSION: 1. Stable appearance of chest demonstrate no acute abnormality. Dictated by: Dictated on workstation # [id number]
[2020-06-07 10:53] VITALS: BP 152/76
== END 2020-06-07 10:53 | disposition home or self-care (01) ==
LOC: EDUNIT# 07:05 → ER 07:09
DX: I10 Essential (primary) hypertension (principal); R07.89 Other chest pain; R00.2 Palpitations; E11.9 Type 2 diabetes mellitus without complications; G43.909 Migraine, unspecified, not intractable, without status migrainosus; Z85.41 Personal history of malignant neoplasm of cervix uteri; Z87.891 Personal history of nicotine dependence
CPT/HCPCS: 36415; 71045; 80053; 83735; 83874; 83880; 84443; 84484; 85025; 85610; 85730; 93005; 93041

== ENCOUNTER 2020-09-07 21:25 | Emergency (ER) | payer MEDICARE ==
[~2020-09-07] VITALS: Ht 172.7 cm; Wt 122.5 kg
[2020-09-07] MEDS ORDERED: diphenhydrAMINE 50 MG/ML INJ (BENADRYL) IVP ONE (21:45)
[2020-09-07] MEDS ORDERED: FAMOTIDINE 20MG/2ML IV (PEPCID) IVP ONE (21:45)
--- NOTE | 2020-09-07 21:50 | ED General ---
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 PT TAKES QUINAPRIL. Nursing Sepsis Screen: No Definite Risk Source of Information: Patient Exam Limitations: No Limitations History of Present Illness Date Seen by Provider: Sep 07, 2020 Time Seen by Provider: 21:35 Initial Comments This delightful 70-year-old woman presents to the emergency room with complaints of swollen upper lip. She denies any tongue or throat swelling or difficulty breathing. She has no hives or itching. She does not know what is causing it and denies any new exposures. She does take quinapril and has for years. Her last dose was this morning. Her lip swelling started approximately an hour prior to arrival. She is hypertensive and vital signs are otherwise normal. She denies any new medications. She did eat an ice cream bar that she has not consumed before. However, she has not had any problems with that type of product in the past. Allergies and Home Medications Allergies Coded Allergies: Darell Known Allergies (Verified Allergy, Unknown, 10/15/06) Home Medications Hydrocodone/Acetaminophen 1 Each Tablet, 1-2 EACH PO Q4H PRN for PAIN Prescribed by: NATY ROLDAN on 03/23/16 1301 Meloxicam 15 Mg Tablet, 15 MG PO DAILY Prescribed by: KEVYN QUINTANILLA on 09/23/18 2344 Sulfamethoxazole/Trimethoprim 1 Each Tablet, 1 EACH PO BID Prescribed by: KEVYN QUINTANILLA on 09/23/18 2344 Patient Home Medication List Home Medication List Reviewed: Yes Review of Systems Review of Systems Constitutional: no symptoms reported EENTM: see HPI Respiratory: no symptoms reported Cardiovascular: see HPI Gastrointestinal: no symptoms reported Genitourinary: no symptoms reported Musculoskeletal: no symptoms reported Skin: no symptoms reported Psychiatric/Neurological: No Symptoms Reported Hematologic/Lymphatic: No Symptoms Reported Immunological/Allergic: no symptoms reported Past Oneensh-Wczern-Utpizt Hx Past Med/Social Hx: Reviewed Nursing Past Med/Soc Hx Patient Social History Alcohol Use: Denies Use Smoking Status: Former Smoker Type Used: Cigarettes 2nd Hand Smoke Exposure: No (quit in 2006) Recent Infectious Disease Expo: No Recent Hopitalizations: No Immunizations Up To Date Tetanus Booster (TDap): Unknown PED Vaccines UTD: Yes Seasonal Allergies Seasonal Allergies: Yes Past Medical History Surgeries: Yes Appendectomy, Gallbladder, Hysterectomy, Oophorectomy, Tubal Ligation Respiratory: Yes Asthma Cardiac: Yes Heart Murmur, Hypertension Neurological: Yes Headaches /Migraines Reproductive Disorders: Yes 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 oz. 117.933953pw; 41.00 BMI Method:Stated General Appearance: No Apparent Distress, WD/WN HEENT: PERRL/EOMI, Pharynx Normal, Other (Upper lip swelling. 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 Norm as Tested Skin: Normal Color, Warm/Dry Progress/Results/Core Measures Suspected Sepsis Recent Fever Within 48 Hours: No Infection Criteria Present: None New/Unexplained Altered Menta: No Sepsis Screen: No Definite Risk SIRS Temperature: Pulse: 85 Respiratory Rate: 16 Blood Pressure 181 /82 Mean: 115 Results/Orders My Orders Orders - KORINA MOLINA MD Ed Iv/Invasive Line Start (09/07/20 21:43) Diphenhydramine Injection (Benadryl Inje (09/07/20 21:45) Famotidine Injection (Pepcid Injection) (09/07/20 21:45) Medications Given in ED Current Medications Medications Dose Ordered Sig/Ulisses Route Start Time Stop Time Status Last Admin Dose Admin Diphenhydramine HCl 25 mg ONCE ONCE IVP 09/07/20 21:45 09/07/20 21:46 DC 09/07/20 21:48 25 MG Famotidine 20 mg ONCE ONCE IVP 09/07/20 21:45 09/07/20 21:46 DC 09/07/20 21:50 20 MG Vital Signs/I&O 09/07/20 21:31 Temp 36.3 Pulse 85 Resp 16 B/P (MAP) 181/82 (115) O2 Delivery Room Air Capillary Refill : Less Than 3 Seconds Blood Pressure Mean: 115 Progress Note #1: Time: 21:47 Progress Note Swelling is mild and nonlife-threatening at this time. Since she is already hypertensive we will not administer epinephrine at this time. We will monitor and treat with Benadryl and Pepcid. If symptoms worsen, we will administer epinephrine. For now we will monitor. Progress Note #2: Time: 22:36 Progress Note Patient has had no notable change since arrival. She states she feels a little bit better. Her blood pressure has been trending toward normal. She and I are both comfortable with her returning home at this point. She was instructed to stop quinapril. She plans to stay awake until around 0200 to ensure her condition stays stable. See discharge instructions for further discussion. Departure Impression Primary Impression: Angioedema Qualified Codes: T78.3XXA - Angioneurotic edema, initial encounter Disposition: 01 HOME, SELF-CARE Condition: Stable Departure-Patient Inst. Referrals: [facility] (PCP) Primary Care Physician NO FOX (Family) Primary Care Physician Patient Instructions: Angioedema Add. Discharge Instructions: Stop quinapril. Contact your primary care provider tomorrow morning to inquire about a substitute for quinapril. Promptly return to the emergency room if you have a recurrent episode of lip, tongue, or throat swelling. If symptoms are severe, take Benadryl 50 mg and your EpiPen. Then immediately present to the emergency room or call 911. Call with questions or concerns. Return to the emergency room if you have any other worsening symptoms or concerns. All discharge instructions reviewed with patient and/or family. Voiced understanding. Scripts Epinephrine (Epipen) 0.3 Mg/0.3 Ml Auto.injct 0.3 MG IJ UD, #1 ML Prov: KORINA MOLINA MD 09/07/20 Copy Copies To 1: KAMILAH BROWN JOSHUA T MD Sep 07, 2020 21:50
[2020-09-07] MEDS ORDERED: EPIN0.3P2 IJ (22:45)
[2020-09-07 22:49] VITALS: BP 144/69
== END 2020-09-07 22:55 | disposition home or self-care (01) ==
LOC: EDUNIT# 21:25 → ER 21:26
DX: T78.3XXA Angioneurotic edema, initial encounter (principal); G43.909 Migraine, unspecified, not intractable, without status migrainosus; Z85.42 Personal history of malignant neoplasm of other parts of uterus; Z87.891 Personal history of nicotine dependence

== ENCOUNTER → 2021-02-01 | Outpatient (CLI) | payer MEDICARE ==
[~2021-02-01] MED LIST changes: +EPIN0.3P2 IJ; -SULF1TAB35 PO; +SULF1TAB38 PO
--- NOTE | 2021-02-01 17:58 | Diagnostic Imaging Report ---
Procedure: CT pelvis without contrast. Technique: Multiple contiguous axial images were obtained through the pelvis without the use of intravenous contrast. Sagittal and coronal reformations were performed. Auto Exposure Controls were utilized during the CT exam to meet ALARA standards for radiation dose reduction. Date: February 01, 2021. Indication: 62-year-old female, lymphedema. History of endometrial cancer. Comparison: None. Findings: The uterus is not seen and is likely surgically absent. There is diverticulosis without evidence of acute diverticulitis. The intestinal tract is not distended in its imaged segments. There is no free intraperitoneal air. There is no focal drainable fluid collection. There is mild inflammatory stranding in the pelvis centered in the region of the distal sigmoid colon and near the expected location of the absent uterus. There are atherosclerotic calcifications. There is no identified abnormally enlarged lymph node in the pelvis meeting CT size criteria for adenopathy. There is a right inguinal lymph node with fairly ill-defined margins measuring 10 mm in short axis on axial image 99. There are additional subcentimeter short axis inguinal lymph nodes. There is chondrocalcinosis. There are multilevel degenerative changes of the spine. Impression: 1. Irregular morphology 10 mm short axis right inguinal lymph node which potentially is pathologic. This is at the distal margin of the included [id number]. 2. Surgical absence of the uterus. 3. No identified lymph node specifically in the pelvis meeting CT size criteria for adenopathy. 4. Nonspecific stranding of the fat near the level of the distal sigmoid colon and absent uterus. No focal fluid collection or sizable volume free pelvic fluid. Dictated by: Dictated on workstation # [id number]
== END ==
LOC: RAD 11:10
PROVIDERS: ATTEND Physician Assistant
DX: I89.0 Lymphedema, not elsewhere classified (principal); Z85.42 Personal history of malignant neoplasm of other parts of uterus; Z90.710 Acquired absence of both cervix and uterus
CPT/HCPCS: 72192

== ENCOUNTER 2023-01-15 22:11 | Emergency (ER) | payer MEDICARE ==
[~2023-01-15] VITALS: Ht 167 cm; Wt 89.3 kg
[2023-01-15] MEDS ORDERED: ASPIRIN 81 MG CHEWABLE TABLET PO ONE (22:30)
[2023-01-15 22:35] LABS: BASOPHILS % (AUTO) 0 % (0-10); EOSINOPHILS # (AUTO) 0.2 10^3/uL (0.0-0.3); EOSINOPHILS % (AUTO) 3 % (0-10); HEMATOCRIT 43 % (35-52); HEMOGLOBIN 14.5 g/dL (11.5-16.0); LYMPHOCYTES # (AUTO) 1.1 10^3/uL (1.0-4.0); LYMPHOCYTES % (AUTO) 22 % (12-44); MEAN CORPUSCULAR HEMOGLOBIN 32 pg (25-34); MEAN CORPUSCULAR HGB CONC 34 g/dL (32-36); MEAN CORPUSCULAR VOLUME 96 fL (80-99); MEAN PLATELET VOLUME 10.4 fL (9.0-12.2); MONOCYTES # (AUTO) 0.5 10^3/uL (0.0-1.0); MONOCYTES % (AUTO) 11 % (0-12); NEUTROPHILS % (AUTO) 63 % (42-75); PLATELET COUNT 242 10^3/uL (130-400); WHITE BLOOD COUNT 4.8 10^3/uL (4.3-11.0)
[2023-01-15] MEDS: NITROGLYCERIN 0.4 MG SL TABLETS BTL 25'S SL PRN ×2 (22:36→22:44)
[2023-01-15 22:38] LABS: ALBUMIN 4.5 GM/DL (3.2-4.5); CHLORIDE 102 MMOL/L (98-107); POTASSIUM 4.1 MMOL/L (3.6-5.0)
[2023-01-15 22:39] LABS: SODIUM 140 MMOL/L (135-145)
[2023-01-15 22:40] LABS: AMYLASE 30 U/L (25-125); CALCIUM 9.6 MG/DL (8.5-10.1)
[2023-01-15 22:41] LABS: GLUCOSE 111 MG/DL (70-105); TOTAL PROTEIN 7.4 GM/DL (6.4-8.2)
[2023-01-15 22:42] LABS: CARBON DIOXIDE 28 MMOL/L (21-32); INR 0.9 (0.8-1.4); PROTHROMBIN TIME PATIENT 12.6 SEC (12.2-14.7)
[2023-01-15 22:43] LABS: BILIRUBIN,TOTAL 1.8 MG/DL (0.1-1.0)
[2023-01-15 22:44] LABS: ALKALINE PHOSPHATASE 101 U/L (40-136)
[2023-01-15 22:45] LABS: CREATININE SERUM 0.98 MG/DL (0.60-1.30); GFR ESTIMATED 62
[2023-01-15 22:46] LABS: BUN/CREATININE RATIO 29
[2023-01-15 22:47] LABS: ALANINE AMINOTRANSFERASE 23 U/L (0-55); MAGNESIUM 2.1 MG/DL (1.6-2.4)
[2023-01-15 22:48] LABS: CREATINE KINASE 49 U/L (29-168); LIPASE 32 U/L (8-78)
[2023-01-15 22:55] LABS: CREATINE KINASE MB 1.4 NG/ML (<6.6)
[2023-01-15] MEDS ORDERED: NS IV 1000 ML 1,000 ML IV SCH (23:00)
--- NOTE | 2023-01-15 23:04 | ED Chest Pain ---
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 PATIENT REPORTS CHEST PAIN MID OF CHEST RADIATING UP LEFT NECK INTO LEFT EAR. STATES SHARP "RUNNING" PAIN. Source: patient History of Present Illness Date Seen by Provider: Jan 15, 2023 Time Seen by Provider: 22:30 Initial Comments PT ARRIVES VIA POV FROM HOME C/O CHEST PAIN SINCE 2144 TONIGHT PT WAS SITTING IN CHAIR WHEN PAIN BEGAN PAIN IS IN CENTER OF CHEST, AND RADIATES TO BOTH SIDES OF HER NECK AND INTO HER BACK NOTHING WORSENS OR IMPROVES PAIN RATES PAIN 8-9/10 STATES SHE FEELS A HEAVINESS ON BREATHING AND IS BREATHING SHALLOW, BUT DOES NOT HURT TO BREATHE NO SWEATS NO NAUSEA/VOMITING NO DIZZINESS OR SYNCOPE NO PALPITATIONS NO FEVER NO COUGH/CONGESTION NO HISTORY OF SIMILAR STATES SHE JUST HASN'T FELT GOOD ALL DAY--JUST TIRED AND DIDN'T FEEL LIKE DOING ANYTHING AND NO APPETITE TODAY ATE 2 PIECES OF TOAST AND 4 PIECES OF SHRIMP TODAY. NO OTHER FOODS SHE HAS BEEN DRINKING WATER TODAY AND VOIDING A NORMAL AMOUNT PT HAD RIGHT TOTAL KNEE REPLACEMENT AT [facility] IN [place] BY DR. WARE ON 12/30/22 SHE HAD PRE-OP ECHOCARDIOGRAM AT PRIOR TO SURGERY--PT STATES SHE HAS A HEART MURMUR. SHE HAS NOT HAD ANY OTHER HEART PROBLEMS SHE HAD A STRESS TEST SEVERAL YEARS AGO AT [place] AND WAS REPORTEDLY NORMAL. SHE HAS NEVER HAD A CARDIAC CATH SHE DOES NOT SEE A DETENTION OFFICER SINCE SURGERY SHE HAS BEEN ON ASPIRIN AND AN ANTIBIOTIC AND TRAMADOL AND HYDROCODONE SHE HAS NOT HAD ANY TRAMADOL TODAY, AND SHE TOOK 1 HYDROCODONE THIS MORNING SHE HAS NOT TAKEN ANYTHING ELSE TO DAY FOR PAIN PT IS DIABETIC ON METFORMIN. HER BLOOD SUGAR WAS 112 THIS AM. SHE ALSO HAS HTN AND HYPERLIPIDEMIA SHE HAS HAD PRIOR CHOLECYSTECTOMY, APPENDECTOMY, HYSTERECTOMY PCP: [facility] [place]. USED TO SEE DR. 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 Allergies and Home Medications Allergies Coded Allergies: NKANo Known Allergies (Verified Allergy, Unknown, 10/15/06) Patient Home Medication List Albuterol (Proventil) 17 Gm Inh, (Reported) Entered as Reported by: PORSHA SORENSON on 10/15/06 1004 Clarithromycin (Biaxin) 500 Mg Tablet, (Reported) Entered as Reported by: PORSHA SORENSON on 10/15/06 1004 Epinephrine (Epipen) 0.3 Mg/0.3 Ml Auto.injct, 0.3 MG IJ UD Prescribed by: KORINA ANDINO on 09/07/20 2245 Furosemide (Lasix) 20 Mg Tablet, (Reported) Entered as Reported by: PORSHA SORENSON on 10/15/06 1004 Hydrocodone/Acetaminophen (Lortab 5-325 mg Tablet) 1 Each Tablet, 1-2 EACH PO Q4H PRN for PAIN Prescribed by: NATY ROLDAN on 03/23/16 1301 Meloxicam (Mobic) 15 Mg Tablet, 15 MG PO DAILY Prescribed by: KEVYN QUINTANILLA on 09/23/18 2344 Omeprazole (Omeprazole) 20 Mg Capsule., (Reported) Entered as Reported by: PORSHA SORENSON on 10/15/06 1004 Phenylephrine/Hydrocodone/Pyr (Codimal Dh Syrup) 118 Ml Btl, (Reported) Entered as Reported by: PORSHA SORENSON on 10/15/06 1003 Quinapril Hcl (Accupril 10 Mg) 10 Mg Tablet, (Reported) Entered as Reported by: PORSHA SORENSON on 10/15/06 1003 Sulfamethoxazole/Trimethoprim (Bactrim Ds Tablet) 1 Each Tablet, 1 EACH PO BID Prescribed by: KEVYN QUINTANILLA on 09/23/18 2344 Review of Systems Review of Systems Constitutional: see HPI, malaise EENTM: No Symptoms Reported Respiratory: See HPI Cardiovascular: See HPI Gastrointestinal: No Symptoms Reported Genitourinary: No Symptoms Reported Musculoskeletal: see HPI Skin: no symptoms reported Psychiatric/Neurological: No Symptoms Reported Endocrine: No Symptoms Reported Hematologic/Lymphatic: No Symptoms Reported Past Byqoczn-Pkuxvp-Efjfoe Hx Patient Social History Tobacco Use?: No Use of E-Cig and/or Vaping dev: No Substance use?: No Alcohol Use?: No Immunizations Up To Date Tetanus Booster (TDap): Unknown PED Vaccines UTD: Yes Seasonal Allergies Seasonal Allergies: Yes Past Medical History Surgery/Hospitalization HX: HTN, RIGHT KNEE REPLACEMENT DEC 30, 2022, Surgeries: Yes Appendectomy, Gallbladder, Hysterectomy, Joint Replacement, Oophorectomy, Orthopedic, Tubal Ligation Respiratory: Yes Asthma Cardiac: Yes Heart Murmur, High Cholesterol, Hypertension Neurological: Yes Headaches /Migraines Reproductive Disorders: Yes 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 oz. 117.830929ja; 32.00 BMI Method:Stated General Appearance: No Apparent Distress, WD/WN HEENT: No Scleral Icterus (L), No Scleral Icterus (R); Other (EDENTULOUS) Neck: Normal Inspection Respiratory: Chest Non Tender, Normal Breath Sounds, No Accessory Muscle Use, No Respiratory Distress Cardiovascular: Regular Rate, Rhythm, No Edema, No JVD, Normal Peripheral Pulses Gastrointestinal: Non Tender, Soft Extremity: No Pedal Edema, Other (RIGHT KNEE WITH STERI STRIPS IN PLACE. WOUND APPEARS NORMAL WITHOUT SIGNS OF INFECTION. THERE IS NORMAL APPEARING POST OP SWELLING TO KNEE. THERE IS NO DISTAL EDEMA. NO CALF TENDERNESS. MOTOR/SENSORY/VASCULAR INTACT. ) Neurologic/Psychiatric: Alert, Oriented x3, No Motor/Sensory Deficits, Normal Mood/Affect, manager drug safety II-XII Norm as Tested Skin: Normal Color, Warm/Dry Progress/Results/Core Measures Results/Orders Lab Results Laboratory Tests Test 01/15/23 22:20 01/15/23 22:31 01/16/23 02:03 Range/Units White Blood Count 4.8 4.3-11.0 10^3/uL Red Blood Count 4.48 3.80-5.11 10^6/uL Hemoglobin 14.5 11.5-16.0 g/dL Hematocrit 43 35-52 % Mean Corpuscular Volume 96 80-99 fL Mean Corpuscular Hemoglobin 32 25-34 pg Mean Corpuscular Hemoglobin Concent 34 32-36 g/dL Red Cell Distribution Width 13.3 10.0-14.5 % Platelet Count 242 130-400 10^3/uL Mean Platelet Volume 10.4 9.0-12.2 fL Immature Granulocyte % (Auto) 0 % Neutrophils (%) (Auto) 63 42-75 % Lymphocytes (%) (Auto) 22 12-44 % Monocytes (%) (Auto) 11 0-12 % Eosinophils (%) (Auto) 3 0-10 % Basophils (%) (Auto) 0 0-10 % Neutrophils # (Auto) 3.0 1.8-7.8 10^3/uL Lymphocytes # (Auto) 1.1 1.0-4.0 10^3/uL Monocytes # (Auto) 0.5 0.0-1.0 10^3/uL Eosinophils # (Auto) 0.2 0.0-0.3 10^3/uL Basophils # (Auto) 0.0 0.0-0.1 10^3/uL Immature Granulocyte # (Auto) 0.0 0.0-0.1 10^3/uL Prothrombin Time 12.6 12.2-14.7 SEC INR Comment 0.9 0.8-1.4 Activated Partial Thromboplast Time 35 24-35 SEC Sodium Level 140 135-145 MMOL/L Potassium Level 4.1 3.6-5.0 MMOL/L Chloride Level 102 98-107 MMOL/L Carbon Dioxide Level 28 21-32 MMOL/L Anion Gap 10 5-14 MMOL/L Blood Urea Nitrogen 28 H 7-18 MG/DL Creatinine 0.98 0.60-1.30 MG/DL Estimat Glomerular Filtration Rate 62 BUN/Creatinine Ratio 29 Glucose Level 111 H 70-105 MG/DL Calcium Level 9.6 8.5-10.1 MG/DL Corrected Calcium 9.2 8.5-10.1 MG/DL Magnesium Level 2.1 1.6-2.4 MG/DL Total Bilirubin 1.8 H 0.1-1.0 MG/DL Aspartate Amino Transf (AST/SGOT) 23 5-34 U/L Alanine Aminotransferase (ALT/SGPT) 23 0-55 U/L Alkaline Phosphatase 101 40-136 U/L Total Creatine Kinase 49 29-168 U/L Creatine Kinase MB 1.4 <6.6 NG/ML Myoglobin 31.1 10.0-92.0 NG/ML Troponin I < 0.028 < 0.028 <0.028 NG/ML B-Type Natriuretic Peptide < 10.0 <100.0 PG/ML Total Protein 7.4 6.4-8.2 GM/DL Albumin 4.5 3.2-4.5 GM/DL Amylase Level 30 25-125 U/L Lipase 32 8-78 U/L Urine Color YELLOW Urine Clarity CLEAR Urine pH 5.5 5-9 Urine Specific [place] 1.015 L 1.016-1.022 Urine Protein NEGATIVE NEGATIVE Urine Glucose (UA) NEGATIVE NEGATIVE Urine Ketones NEGATIVE NEGATIVE Urine Nitrite NEGATIVE NEGATIVE Urine Bilirubin NEGATIVE NEGATIVE Urine Urobilinogen 0.2 < = 1.0 MG/DL Urine Leukocyte Esterase 1+ H NEGATIVE Urine RBC (Auto) TRACE H NEGATIVE Urine RBC 0-2 /HPF Urine WBC 25-50 H /HPF Urine Squamous Epithelial Cells 2-5 /HPF Urine Crystals NONE /LPF Urine Bacteria LARGE H /HPF Urine Casts NONE /LPF Urine Mucus SMALL H /LPF Urine Culture Indicated YES My Orders Orders - KEVYN QUINTANILLA DO Cbc With Automated Diff (01/15/23:) Magnesium (01/15/23 22:26) Chest 1 View, Ap/Pa Only (01/15/23 22:26) Ekg Tracing (01/15/23:) Comprehensive Metabolic Panel (01/15/23:) Myoglobin Serum (01/15/23 22:26) Protime With Inr (01/15/23 22:) Partial Thromboplastin Time (01/15/23:) O2 (01/15/23 22:26) Monitor-Rhythm Ecg Trace Only (01/15/23 22:) Ed Iv/Invasive Line Start (01/15/23 22:) Creatine Kinase (01/15/23 22:26) Creatine Kinase Mb (01/15/23 22:) Lipase (01/15/23 22:26) Amylase (01/15/23 22:) Bnp Tin (01/15/23 22:) Troponin I [place] (01/15/23 22:26) Nitroglycerin 0.4 Mg Btl 25's (Nitrostat (01/15/23 22:30) Aspirin Chewable Tablet (Aspirin Chewabl (01/15/23 22:30) Ct Angio Chest W (R/O Pe) (01/15/23 22:48) Ed Iv/Invasive Line Start (01/15/23 22:49) Ns Iv 1000 Ml (Sodium Chloride 0.9%) (01/15/23 23:00) Ua Culture If Indicated (01/15/23 23:08) Iohexol Injection (Omnipaque 350 Mg/Ml 1 (01/16/23 00:00) Received Contrast (Hold Metformin- Contr (01/16/23 00:00) Ns (Ivpb) 100 Ml (Sodium Chloride 0.9% 1 (01/16/23 00:00) Urine Culture (01/15/23 22:31) Ceftriaxone Iv/Im (Ceftriaxone Iv/Im) (01/16/23 00:15) Troponin I [place] (01/16/23 02:00) Medications Given in ED Current Medications Medications Dose Ordered Sig/Ulisses Route Start Time Stop Time Status Last Admin Dose Admin Aspirin 324 mg ONCE ONCE PO 01/15/23 22:30 01/15/23 22:31 DC 01/15/23 22:35 324 MG Ceftriaxone Sodium 1000 mg/ Sodium Chloride 50 ml @ 100 mls/hr ONCE ONCE IV 01/16/23 00:15 01/16/23 00:44 DC 01/16/23 00:21 100 MLS/HR Iohexol 100 ml ONCE ONCE IV 01/16/23 00:00 01/16/23 00:05 DC 01/15/23 23:51 76 ML Nitroglycerin 0.4 mg UD PRN SL 01/15/23 22:30 01/15/23 22:44 0.4 MG Sodium Chloride 100 ml ONCE ONCE IV 01/16/23 00:00 01/16/23 00:05 DC 01/15/23 23:51 70 ML Vital Signs/I&O 01/15/23 01/15/23 22:15 22:44 Temp 36.3 Pulse 84 Resp 20 B/P (MAP) 130/67 (88) Pulse Ox 95 O2 Delivery Room Air Nasal Cannula O2 Flow Rate 2.00 Blood Pressure Mean: 88 Progress Progress Note : Progress Note GIVEN: -ASPIRIN -NTG X 3--PAIN DOWN TO 4-5/10, BUT DID HAVE DROP IN BP AFTER 3RD NTG. BP UP WITH FLUIDS -IV FLUIDS PAIN AND ALL SYMPTOMS RESOLVED WITHOUT FURTHER TREATMENT NO SYMPTOMS FOR REMAINDER OF ER STAY REPEAT TROPONIN NEGATIVE CXR UNREMARKABLE CT CHEST ANGIOGRAM IS NEGATIVE FOR P.E. OR PNEUMONIA OR ACUTE PROCESS REVIEWED TESTS RESULTS, ANTICIPATED COURSE, SYMPTOMATIC TREATMENT AND NEED FOR FOLLOW UP AND RETURN PRECAUTIONS PT FEELS COMFORTABLE GOING HOME AND IS ANXIOUS TO GO HOME. Initial ECG Impression Date: Jan 15, 2023 Initial ECG Impression Time: 22:22 Initial ECG Rate: 74 Initial ECG Rhythm: Normal Sinus Initial ECG Intervals: Normal Initial ECG Impression: Normal Initial ECG Comparisson: Unchanged Comment INTERPRETED BY ME Diagnostic Imaging Comments CXR--NO ACUTE PROCESS, PENDING RADIOLOGIST REVIEW CT CHEST ANGIOGRAM--PER [facility] VIA FAX AT 2092 -NO PULMONARY EMBOLI -MINIMAL BAND LIKE DENSITIES IN LUNG BASES, MOST LIKELY SUBSEGMENTAL ATELECTASIS. NO CONSOLIDATIVE PNEUMONIA OR EFFUSION -2.5 CM WINDOW MASS, LIKELY LYMPH NODE. -PROBABLE CYSTIC NODULE IN LEFT LOBE OF THYROID -NON-ACUTE APPEARING COMPRESSION DEFORMITY OF SUPERIOR ENDPLATE OF T2. Reviewed: Reviewed by Me Departure Impression Primary Impression: Chest pain Additional Impression: S/O LEFT KNEE REPLACEMENT Disposition: 01 HOME, SELF-CARE Condition: Improved Departure-Patient Inst. Decision time for Depature: 03:00 Referrals: [facility] (PCP) Primary Care Physician NO FOX (Family) Primary Care Physician Patient Instructions: Chest Pain (DC) Add. Discharge Instructions: CONTINUE YOUR CURRENT MEDICATIONS PRESCRIBED FOLLOW ALL POST OP INSTRUCTIONS AND MEDICATIONS FOLLOW UP WITH [facility] IN 1-2 DAYS FOR FURTHER CARE, RETURN TO ER IF SYMPTOMS RETURN. All discharge instructions reviewed with patient and/or family. Voiced understanding. KEVYN QUINTANILLA DO Jan 15, 2023 23:04
[2023-01-16] MEDS ORDERED: NS 100 ML (IVPB) BAG IV ONE
[2023-01-16] MEDS ORDERED: IOHEXOL 350 MG/ML 100 ML (OMNIPAQUE 350) VIAL IV ONE
[2023-01-16] MEDS ORDERED: HOLD METFORMIN - RECEIVED CONTRAST 20 ML VIAL IV SCH
[2023-01-16 00:04] LABS: BILIRUBIN,URINE NEGATIVE (NEGATIVE); CLARITY,URINE CLEAR; COLOR,URINE YELLOW; GLUCOSE, URINE (UA) NEGATIVE (NEGATIVE); KETONES,URINE NEGATIVE (NEGATIVE); LEUKOCYTE ESTERASE ,URINE 1+ (NEGATIVE); NITRITE,URINE NEGATIVE (NEGATIVE); PH,URINE 5.5 (5-9); PROTEIN,URINE NEGATIVE (NEGATIVE); RBC,URINE 0-2 /HPF; WBC,URINE 25-50 /HPF
[2023-01-16 00:05] LABS: BACTERIA,URINE LARGE /HPF
[2023-01-16] MEDS ORDERED: cefTRIAXone IV/IM 1,000 MG in NS (IVPB) 50 ML 50 ML IV ONE (00:15)
[2023-01-16 03:16] VITALS: BP 122/68
--- NOTE | 2023-01-16 08:17 | Diagnostic Imaging Report ---
TECHNIQUE: CTA of the chest was performed with contrast bolus timing optimized for evaluation of the pulmonary arteries. 3-D reformats were obtained and reviewed. REASON FOR EXAM: Chest pain. Recent surgery. COMPARISON: Chest radiograph performed earlier the same date. FINDINGS: This helical CT pulmonary angiogram is diagnostic to the subsegmental level branches of the pulmonary artery and demonstrates no pulmonary emboli. The heart and great vessels are unremarkable. There is no pericardial effusion. Likely prominent and eccentric pericardial recess is seen in the AP window measuring 2.5 cm. There is no axillary, mediastinal, or hilar adenopathy. There is a nodule in the left lobe of the thyroid measuring 1.2 cm. Subsegmental atelectasis is seen in the lung bases. No focal consolidation or mass. No pleural effusion or pneumothorax. No central endobronchial obstructing lesion. Osseous structures appear normal. Limited views of the upper abdomen are unremarkable. The gallbladder surgically absent. IMPRESSION: 1. No acute pulmonary embolus. 2. Subsegmental atelectasis in the lung bases. No focal consolidation or mass. 3. Likely prominent and eccentric pericardial recess in the AP window. Less likely this is a lymph node although that is not completely excluded. Followup could be performed in 3-[address] 4. Nodule in the left lobe of the thyroid measuring 1.2 cm. Recommend correlation with TSH levels and if indicated thyroid ultrasound to further evaluate. Agree with overnight report. Dictated by: Dictated on workstation # [id number]
--- NOTE | 2023-01-16 08:32 | Diagnostic Imaging Report ---
HISTORY: Chest pain TECHNIQUE: Frontal view of the chest. COMPARISON: 06/07/2020 FINDINGS: Lung volumes are normal. There are linear opacities in the left midlung and left lung base, appears to be chronic scarring and atelectasis. There is no airspace consolidation seen. There is no pleural effusion or pneumothorax. The cardiac silhouette is normal in size. IMPRESSION: 1. Atelectasis/scarring in the left lung base with no acute pulmonary abnormality seen. Dictated by: Dictated on workstation # [id number]
[2023-01-20] MEDS ORDERED: CEFD300C3 PO (09:07)
== END 2023-01-16 03:16 | disposition home or self-care (01) ==
LOC: EDUNIT# 22:11 → ER 22:12
DX: R07.9 Chest pain, unspecified (principal); E11.9 Type 2 diabetes mellitus without complications; Z96.652 Presence of left artificial knee joint; Z79.84 Long term (current) use of oral hypoglycemic drugs; Z79.82 Long term (current) use of aspirin; Z79.1 Long term (current) use of non-steroidal anti-inflammatories (NSAID); Z28.310 Unvaccinated for COVID-19
CPT/HCPCS: 36415; 71045; 71275; 80053; 81000; 82150; 82550; 82553; 83690; 83735; 83874; 83880; 84484; 85025; 85610; 85730; 87077; 87088; 87186; 93005; 93041

== ENCOUNTER 2023-01-28 13:36 | Outpatient (RCR) | payer MEDICARE ==
[~2023-01-28 13:36] MED LIST changes: +CEFD300C3 PO
== END 2023-01-29 | disposition home or self-care (01) ==
PROVIDERS: ATTEND Orthopaedic Surgery
DX: Z47.1 Aftercare following joint replacement surgery (principal); Z96.651 Presence of right artificial knee joint

== ENCOUNTER 2023-02-18 15:07 | Outpatient (RCR) | payer MEDICARE | END 2023-02-18 16:21 | disposition home or self-care (01) | PROVIDERS: ATTEND Orthopaedic Surgery | DX: Z47.1 Aftercare following joint replacement surgery (principal); I10 Essential (primary) hypertension; J45.909 Unspecified asthma, uncomplicated; Z96.651 Presence of right artificial knee joint ==